=== PATIENT | male | born 1935 | race Caucasian/White ===

== ENCOUNTER 2019-07-12 22:26 | Emergency (ER) | payer MEDICARE, MEDICAID ==
[~2019-07-12] VITALS: Ht 172.7 cm; Wt 68.0 kg
--- NOTE | 2019-07-12 22:30 | NUR ---
Dr. Sy at bedside for MSE
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
[2019-07-12 23:04] LABS: BASOPHILS # (AUTO) 0.1 K/uL (0.0-8.0); BASOPHILS % (AUTO) 0.9 % (0.0-2.0); EOSINOPHILS # (AUTO) 0.1 K/uL (0.0-0.7); HEMATOCRIT 35.2 % (36.7-47.1); LYMPHOCYTES # (AUTO) 2.2 K/uL (20.0-40.0); LYMPHOCYTES % (AUTO) 39.8 % (20.5-51.5); MEAN CORPUSCULAR HEMOGLOBIN 35.2 uug (23.8-33.4); MEAN CORPUSCULAR HGB CONC 34 g/dL (32.5-36.3); MEAN CORPUSCULAR VOLUME 103.3 fL (73.0-96.2); MONOCYTES # (AUTO) 0.4 K/uL (2.0-10.0); NEUTROPHILS # (AUTO) 2.7 K/uL (1.8-8.9); NEUTROPHILS % (AUTO) 49.3 % (38.5-71.5); PLATELET COUNT (AUTO) 194 K/uL (152-348); RED BLOOD CELL COUNT(AUTO) 3.41 MIL/uL (4.06-5.63); WHITE BLOOD COUNT (AUTO) 5.5 K/uL (3.6-10.2)
[2019-07-12 23:17] LABS: CARBON DIOXIDE 30 mmol/L (21-32); CHLORIDE 105 mmol/L (98-107); CREATININE 0.9 mg/dL (0.6-1.3); GLUCOSE 100 mg/dL (74-106); POTASSIUM 3.7 mmol/L (3.5-5.1); UREA NITROGEN, BLOOD 21 mg/dL (7-18)
[2019-07-12 23:23] LABS: ACETAMINOPHEN 4.7 ug/mL (10-30); ALANINE AMINOTRANSFERASE 8 U/L (16-63); ALKALINE PHOSPHATASE 93 U/L (50-136); ASPARTATE AMINOTRANSFERASE 16 U/L (15-37); BILIRUBIN,DIRECT 0.1 mg/dL (0.0-0.2); BILIRUBIN,TOTAL 0.3 mg/dL (0.2-1.0); ETHANOL < 3 MG/DL (0-0); TOTAL PROTEIN, SERUM 6.2 g/dL (6.4-8.2)
--- NOTE | 2019-07-12 23:45 | NUR ---
Patient has been medically cleared by Dr. Sy
--- NOTE | 2019-07-12 23:50 | NUR ---
Patient awake and responsive to name. Breathing even and unlabored. NAD noted
--- NOTE | 2019-07-12 23:53 | NUR ---
Spoke with Tomeka from [facility] ETA [id number]. TRIP# [id number]
--- NOTE | 2019-07-13 00:51 | NUR ---
Patient in bed sleeping but easily arousable. Breathing even and unlabored
--- NOTE | 2019-07-13 01:04 | NUR ---
Patient taken by [id number] in stable condition. all belongings with patient. Denies any pain or discomfort at this time
[2019-07-13 01:08] VITALS: BP 129/56
== END 2019-07-13 01:04 | disposition home or self-care (01) ==
LOC: ER 22:29
DX: Z04.6 Encounter for general psychiatric examination, requested by authority (principal); F03.91 Unspecified dementia, unspecified severity, with behavioral disturbance; Z87.891 Personal history of nicotine dependence; Z79.899 Other long term (current) drug therapy
CPT/HCPCS: 36415; 71045; 80048; 80076; 85025; 93005; 99285; G0480 ×2; G0481; A4663